=== PATIENT | male | born 1965 | race Caucasian/White ===

== ENCOUNTER → 2016-07-10 | Outpatient (CLI) | payer OTHER ==
--- NOTE | 2016-07-10 16:34 | RAD ---
PROCEDURE MRI brain without contrast. HISTORY Left-sided weakness and facial droop. TECHNIQUE MRI of the brain was performed without intravenous contrast. FINDINGS There is no diffusion restriction. Scattered foci of T2/FLAIR hyperintensity within the periventricular and subcortical white matter are consistent with mild/moderate chronic microangiopathic change for patient age. Prominence of the lateral ventricles and hemispheric sulci are consistent with mild atrophy for patient age. There is mild mucosal thickening within the sphenoid sinus, both maxillary sinuses and the ethmoid air cells. The orbits, temporal bones and calvarium are unremarkable. There is a scar along the right frontal scalp. IMPRESSION - No acute infarct. - Mild atrophy and mild to moderate chronic small vessel ischemic white matter change for patient age. Electronically signed by: Olman Baker (Jul 10, 2016 16:33:29)
== END | disposition home or self-care (01) ==
LOC: MRI 15:23
PROVIDERS: ATTEND Family Medicine
DX: R20.2 Paresthesia of skin (principal)
CPT/HCPCS: 70551